=== PATIENT | female | born 1965 | race Caucasian/White ===

== ENCOUNTER → 2018-10-07 | Outpatient (CLI) | payer OTHER ==
--- NOTE | 2018-10-07 15:13 | Diagnostic Imaging Report ---
EXAMINATION: Magnetic resonance imaging of the right shoulder without contrast. DATE: October 07, 2018. COMPARISON: None. HISTORY: 53-year-old female, right shoulder pain. TECHNIQUE: Magnetic Resonance Imaging sequences were performed of the shoulder without contrast. FINDINGS: ROTATOR CUFF, LIGAMENTS, TENDONS, AND MUSCLES: The supraspinatus, infraspinatus, teres minor, and subscapularis tendons and muscles are intact. There is normal rotator cuff muscle bulk and signal. LONG HEAD OF BICEPS: The biceps labral attachment and long head of the biceps tendon is intact. The long head of the biceps tendon is normally positioned within the bicipital groove. GLENOHUMERAL JOINT: The humeral head is well positioned relative to the glenoid. The labrum is grossly intact. There is no identified paralabral cyst. The articular cartilage is grossly intact. There is no joint effusion. ACROMIOCLAVICULAR JOINT: There is widening of the acromioclavicular joint likely relating to distal clavicle resection. The coracoclavicular and coracoacromial ligaments are intact. There are no degenerative changes of the acromioclavicular joint. BONE: There is no acute fracture, bone contusion, or evidence of osteonecrosis. BURSAE AND SOFT TISSUES: There is fluid within the subacromial subdeltoid bursa compatible with bursitis and/or recent injection. IMPRESSION: 1. Intact rotator cuff. 2. Widening of the acromioclavicular joint likely reflecting postoperative changes of distal clavicle resection. No residual undersurface acromioclavicular osteophyte. 3. Unremarkable glenohumeral joint evaluation. 4. No acute fracture, bone contusion, or evidence of osteonecrosis. 5. Fluid within the subacromial subdeltoid bursa compatible with bursitis and/or recent injection. Dictated by: Dictated on workstation # [id number]
== END ==
LOC: RAD 13:40
PROVIDERS: ATTEND Orthopaedic Surgery Sports Medicine
DX: M25.811 Other specified joint disorders, right shoulder (principal); M25.511 Pain in right shoulder
CPT/HCPCS: 73221

== ENCOUNTER 2019-02-04 08:48 | Outpatient (RCR) | payer OTHER | END 2019-02-19 14:45 | disposition home or self-care (01) | PROVIDERS: ATTEND Family Medicine Sports Medicine | DX: M75.41 Impingement syndrome of right shoulder (principal) | CPT/HCPCS: 97799 ==